=== PATIENT | male | born 1970 | race Hispanic/Latino ===

== ENCOUNTER 2018-01-28 21:41 | Emergency (ER) | payer OTHER ==
[2018-01-28 22:44] LABS: BASOPHILS % (AUTO) 0.3 % (0.0-5.0); EOSINOPHILS % (AUTO) 1.3 % (0.0-8.0); HEMATOCRIT 42.8 % (42-54); LYMPHOCYTES % (AUTO) 30.2 % (21.0-51.0); MEAN CORPUSCULAR HEMOGLOBIN 32.7 pg (27.0-33.0); MEAN CORPUSCULAR HGB CONC 36.1 g/dL (32.0-36.0); MEAN CORPUSCULAR VOLUME 90.6 fL (79-99); MONOCYTES % (AUTO) 8.7 % (3.0-13.0); NEUTROPHILS % (AUTO) 59.5 % (40.0-77.0); PLATELET COUNT (AUTO) 189 K/uL (130-400); RED BLOOD CELL COUNT(AUTO) 4.72 MIL/uL (4.50-6.20); RED CELL DISTRIBUTION WIDTH 12.7 % (11.0-15.5); WHITE BLOOD COUNT (AUTO) 6.8 K/uL (4.8-10.8)
[2018-01-28 22:52] LABS: CREATININE 0.8 mg/dL (0.5-1.5); POTASSIUM 3.7 mmol/L (3.5-5.1)
[2018-01-28 22:57] LABS: ALBUMIN 3.6 g/dL (3.5-5.0); BILIRUBIN,TOTAL 0.8 mg/dL (0.2-1.0); TOTAL PROTEIN, SERUM 6.8 g/dL (6.0-8.3)
[2018-01-28] MEDS ORDERED: SODIUM CHLORIDE 0.9% 1000ML 1,000 ML IV ONE (23:04)
[2018-01-28 23:22] LABS: CREATINE KINASE MB 1.4 ng/mL (0.5-3.6); CREATINE KINASE, TOTAL 99 U/L (21-232); MYOGLOBIN 32 ng/mL (10-92); TROPONIN I < 0.04 ng/mL (0.00-0.06)
== END 2018-01-29 00:07 | disposition home or self-care (01) ==
LOC: EDH 21:41
DX: E11.65 Type 2 diabetes mellitus with hyperglycemia (principal); E86.0 Dehydration; Z79.4 Long term (current) use of insulin; Z72.0 Tobacco use
CPT/HCPCS: 36415; 80053; 82550; 82553; 83874; 84484; 85025; 93005; 96360; 99285; J7030

== ENCOUNTER 2021-12-29 13:05 | Emergency (ER) | payer OTHER ==
[2021-12-29 13:07] VITALS: BP 147/89
[2021-12-29 13:35] LABS: HEMATOCRIT 45.8 % (42-54); MEAN CORPUSCULAR HEMOGLOBIN 32.3 pg (27.0-33.0); MEAN CORPUSCULAR HGB CONC 35.4 g/dL (32.0-36.0); MEAN CORPUSCULAR VOLUME 91.2 fL (79-99); PLATELET COUNT (AUTO) 196 K/uL (130-400); RED BLOOD CELL COUNT(AUTO) 5.02 MIL/uL (4.50-6.20); RED CELL DISTRIBUTION WIDTH 12.8 % (11.0-15.5); WHITE BLOOD COUNT (AUTO) 11.3 K/uL (4.8-10.8)
[2021-12-29 13:52] LABS: ALBUMIN 3.9 g/dL (3.5-5.0); BILIRUBIN,TOTAL 0.7 mg/dL (0.2-1.0); CREATININE 0.8 mg/dL (0.5-1.5); POTASSIUM 4.2 mmol/L (3.5-5.1); TOTAL PROTEIN, SERUM 6.9 g/dL (6.0-8.3)
[2021-12-29 13:59] LABS: B-TYPE NATRIURETIC PEPTIDE 45 pg/mL (0-100)
[2021-12-29 14:45] LABS: LYMPHOCYTES % (MANUAL) 13 % (22-44); MAN.DIFF COMMENT-IMPRESSION MANUAL DIFFERENTIAL; MONOCYTES % (MANUAL) 1 % (2-9); PLATELET MORPHOLOGY COMMENT ADEQUATE; SEGMENTED NEUTROPHILS % 86 % (40-70)
[2021-12-29] MEDS ORDERED: FAMO-136 PO (14:45)
[2021-12-29] MEDS ORDERED: PANT40TA PO (14:45)
[2021-12-29] MEDS ORDERED: FAMOTIDINE 20MG TAB PO ONE (15:00)
[2021-12-29] MEDS ORDERED: PANTOPRAZOLE 40 MG TAB DR PO SCH (15:00)
== END 2021-12-29 16:14 | disposition home or self-care (01) ==
LOC: EDH 13:05
DX: K29.70 Gastritis, unspecified, without bleeding (principal); Z79.899 Other long term (current) drug therapy
CPT/HCPCS: 36415; 71045; 80053; 83880; 84484; 85025; 87804; 93005

== ENCOUNTER 2022-05-11 23:14 | Inpatient (IN) | payer OTHER ==
[~2022-05-11] VITALS: Ht 172.7 cm; Wt 75.7 kg
[~2022-05-11 23:14] MED LIST: FAMO-136 PO; IBUP-1493 PO; PANT40TA PO
[2022-05-11] MEDS ORDERED: ONDANSETRON 4MG INJ ONE (23:56)
[2022-05-11] MEDS ORDERED: 0.9%NACL 1000ML 1,000 ML IV ONE (23:56)
[2022-05-11 23:59] LABS: BASOPHILS % (AUTO) 0.1 % (0.0-5.0); EOSINOPHILS % (AUTO) 0.2 % (0.0-8.0); HEMATOCRIT 44.6 % (42-54); LYMPHOCYTES % (AUTO) 14.2 % (21.0-51.0); MEAN CORPUSCULAR HEMOGLOBIN 32.6 pg (27.0-33.0); MEAN CORPUSCULAR HGB CONC 36.3 g/dL (32.0-36.0); MEAN CORPUSCULAR VOLUME 89.7 fL (79-99); MONOCYTES % (AUTO) 5.2 % (3.0-13.0); NEUTROPHILS % (AUTO) 79.8 % (40.0-77.0); PLATELET COUNT (AUTO) 233 K/uL (130-400); RED BLOOD CELL COUNT(AUTO) 4.97 MIL/uL (4.50-6.20); RED CELL DISTRIBUTION WIDTH 12.2 % (11.0-15.5); WHITE BLOOD COUNT (AUTO) 12.8 K/uL (4.8-10.8)
[2022-05-12] MEDS ORDERED: ONDANSETRON 4MG INJ IVP ONE
[2022-05-12 00:11] LABS: CREATININE 0.9 mg/dL (0.5-1.5); POTASSIUM 3.5 mmol/L (3.5-5.1)
[2022-05-12 00:14] LABS: APPEARANCE,URINE CLOUDY (CLEAR); BILIRUBIN,URINE NEGATIVE (NEGATIVE); COLOR,URINE YELLOW (YELLOW); GLUCOSE, URINE (UA) NEGATIVE (NEGATIVE); KETONES,URINE 20 mg/dL (NEGATIVE); LEUKOCYTE ESTERASE ,URINE NEGATIVE Leu/uL (NEGATIVE); NITRATE,URINE NEGATIVE (NEGATIVE); OCCULT BLOOD,URINE NEGATIVE (NEGATIVE); PROTEIN,URINE 20 mg/dL (NEGATIVE)
[2022-05-12 00:15] LABS: ALBUMIN 3.9 g/dL (3.5-5.0); MAGNESIUM 1.7 mg/dL (1.80-2.40); TOTAL PROTEIN, SERUM 7.2 g/dL (6.0-8.3)
[2022-05-12 00:19] LABS: BACTERIA,URINE RARE /HPF (None Seen); MUCUS,URINE FEW LPF (None Seen); SQUAMOUS EPITHELIAL CELL,UR RARE /HPF (0-2); YEAST,URINE BUDDING RARE /HPF (None Seen)
[2022-05-12] MEDS ORDERED: 0.9%NACL 1000ML 1,000 ML IV ONE ×3 (00:30→05:43)
[2022-05-12 00:34] LABS: AMPHET/METH SCREEN,URINE NEGATIVE (NEGATIVE); BARBITURATE SCREEN, URINE NEGATIVE (NEGATIVE); BENZODIAZEPINES SCREEN,URINE NEGATIVE (NEGATIVE); CANNABINOID SCREEN,URINE POSITIVE (NEGATIVE); COCAINE SCREEN,URINE POSITIVE (NEGATIVE); PHENCYCLIDINE SCREEN,URINE NEGATIVE (NEGATIVE)
[2022-05-12] MEDS ORDERED: IOHEXOL 350 MG/ML 100ML INFUS..BTL IV ONE (02:48)
[2022-05-12] MEDS ORDERED: HYDROCODONE/ACETAMINOPHEN 5/325 MG TAB PO PRN (05:00)
[2022-05-12] MEDS ORDERED: MAG/ALUM/SIMETH 30 ML UDCUP PO PRN (05:00)
[2022-05-12] MEDS ORDERED: MORPHINE 4 MG SYG IV PRN (05:00)
[2022-05-12] MEDS ORDERED: ONDANSETRON 4MG INJ IV PRN (05:00)
[2022-05-12] MEDS ORDERED: LACTULOSE 20 GM/30 ML UDCUP PO PRN (05:00)
[2022-05-12] MEDS ORDERED: MAGNESIUM 2GM PREMIX 50ML 50 ML IV SCH (05:00)
[2022-05-12] MEDS ORDERED: ACETAMINOPHEN 325 MG TAB PO PRN ×2 (05:00)
[2022-05-12] MEDS ORDERED: ALBUTEROL 0.083% 2.5 MG/3 ML INH IH PRN (05:00)
[2022-05-12] MEDS ORDERED: ONDANSETRON 4MG INJ ONE (05:40)
[2022-05-12] MEDS ORDERED: MORPHINE 4 MG SYG ONE (05:40)
[2022-05-12] MEDS ORDERED: ASPIRIN 81MG CHEW TAB ONE (05:47)
[2022-05-12] MEDS ORDERED: ENOXAPARIN SODIUM 40 MG/0.4 ML SYRINGE SQ ONE (05:48)
[2022-05-12 05:51] LABS: INR 1.05 (0.85-1.15); PROTHROMBIN TIME 11.4 SEC (9.6-11.6)
[2022-05-12 06:14] LABS: HEMOGLOBIN A1C 5.8 % (4.0-6.0); THYROID STIMULATING HORMONE 0.45 uIU/mL (0.36-3.74)
[2022-05-12] MEDS: 0.9%NACL 1000ML 1,000 ML IV SCH ×2 (06:18→15:00)
[2022-05-12] MEDS: CEFTRIAXONE 1G VIAL IV SCH (06:20)
[2022-05-12] MEDS: ENOXAPARIN SODIUM 40 MG/0.4 ML SYRINGE SQ SCH (06:45)
[2022-05-12] MEDS: INSULIN HUMULIN R 100 UNIT/ML 3ML SQ SCH ×4 (07:30→21:00)
[2022-05-12] MEDS ORDERED: ASPIRIN 325MG EC TAB PO SCH (09:00)
[2022-05-12] MEDS: FAMOTIDINE 20MG VIAL IV SCH ×2 (10:02→21:00)
[2022-05-12] MEDS ORDERED: ATORVASTATIN 40 MG TABLET PO SCH (21:00)
[2022-05-13] MEDS: 0.9%NACL 1000ML 1,000 ML IV SCH ×2 (01:00→04:18)
[2022-05-13 03:45] VITALS: BP 148/83
[2022-05-13] MEDS: CEFTRIAXONE 1G VIAL IV SCH (04:17)
[2022-05-13] MEDS: INSULIN HUMULIN R 100 UNIT/ML 3ML SQ SCH ×2 (06:12→11:30)
[2022-05-13 08:00] VITALS: BP 183/94
[2022-05-13 08:40] LABS: HEMATOCRIT 40.9 % (42-54); MEAN CORPUSCULAR HGB CONC 35.7 g/dL (32.0-36.0); MEAN CORPUSCULAR VOLUME 92.3 fL (79-99); RED BLOOD CELL COUNT(AUTO) 4.43 MIL/uL (4.50-6.20); RED CELL DISTRIBUTION WIDTH 12.4 % (11.0-15.5); WHITE BLOOD COUNT (AUTO) 8.6 K/uL (4.8-10.8)
[2022-05-13] MEDS: FAMOTIDINE 20MG VIAL IV SCH (08:40)
[2022-05-13] MEDS: ENOXAPARIN SODIUM 40 MG/0.4 ML SYRINGE SQ SCH (08:41)
[2022-05-13 08:48] LABS: CREATININE 0.7 mg/dL (0.5-1.5); POTASSIUM 3.5 mmol/L (3.5-5.1)
[2022-05-13] MEDS ORDERED: ASPIRIN 81 MG EC TAB PO SCH (09:00)
[2022-05-13] MEDS ORDERED: CLOPIDOGREL 75MG TAB PO SCH (09:00)
[2022-05-13] MEDS ORDERED: LISINOPRIL 10 MG TABLET PO SCH (09:30)
[2022-05-13] MEDS ORDERED: LISI10TA24 PO (11:44)
[2022-05-13] MEDS ORDERED: CLOP75TA14 PO (11:44)
[2022-05-13] MEDS ORDERED: ATOR40TA69 PO (11:44)
[2022-05-13] MEDS ORDERED: AEC81 PO (11:44)
[2022-05-13 12:00] VITALS: BP 126/69
[2022-05-13] MEDS ORDERED: KCL 20 MEQ ERTAB PO SCH (12:30)
[2022-05-13] MEDS ORDERED: KCL 20 MEQ ERTAB PO ONE (12:45)
== END 2022-05-13 22:58 | disposition home or self-care (01) | DRG 66 ==
LOC: EDH 23:14 → EDHIP 23:15 → 2AH 05-13 03:20
PROVIDERS: ADMIT Hospitalist; ATTEND Hospitalist
DX: I63.532 Cerebral infarction due to unspecified occlusion or stenosis of left posterior cerebral artery (principal); F14.10 Cocaine abuse, uncomplicated; Z20.822 Contact with and (suspected) exposure to COVID-19; F12.90 Cannabis use, unspecified, uncomplicated; F10.10 Alcohol abuse, uncomplicated; E83.42 Hypomagnesemia; E11.65 Type 2 diabetes mellitus with hyperglycemia; E78.5 Hyperlipidemia, unspecified; E86.0 Dehydration; F17.210 Nicotine dependence, cigarettes, uncomplicated; I10 Essential (primary) hypertension; Z79.02 Long term (current) use of antithrombotics/antiplatelets; Z79.899 Other long term (current) drug therapy; Z82.49 Family history of ischemic heart disease and other diseases of the circulatory system; Z91.199 Patient's noncompliance with other medical treatment and regimen due to unspecified reason
CPT/HCPCS: 36415; 70450; 70496; 70498; 70547; 70551; 80048; 80053; 80061; 80305; 81001; 82948; 83036; 83605; 83690; 83735; 84443; 84484; 85025; 85027; 85610; 85730; 87040; 87088; 87635; 87804; 92522; 92610; 93005; 93306; C9803; G0378; J0696; J1650; J2270; J2405; J3490; J7030; Q9967

== ENCOUNTER 2023-04-13 07:03 | Emergency (ER) | payer OTHER, SELFPAY ==
[~2023-04-13] VITALS: Ht 172.7 cm; Wt 95.3 kg
[~2023-04-13 07:03] MED LIST changes: +AEC81 PO; +AMLO-257 PO; +ATOR40TA69 PO; +CLOP-31 PO; -FAMO-136 PO; -IBUP-1493 PO; +LISI20TA24 PO; +METO-391 PO; +NICO-649 TD; -PANT40TA PO
[2023-04-13] MEDS ORDERED: ACETAMINOPHEN 500 MG TABLET PO STA (07:18)
[2023-04-13 07:39] LABS: RAPID GROUP A STREP negative (NEGATIVE)
[2023-04-13 07:49] LABS: SARS-CoV-2, RNA, NAAT POSITIVE SARS CoV-2 (NEGATIVE)
[2023-04-13 07:52] LABS: INFLUENZA TYPE A Negative For Type A (NEGATIVE); INFLUENZA TYPE B Negative For Type B (NEGATIVE)
[2023-04-13] MEDS ORDERED: MOLN200C PO (07:58)
[2023-04-13 08:18] VITALS: BP 133/80; PULSE 89; RESP 19; O2SAT 100
== END 2023-04-13 08:17 | disposition home or self-care (01) ==
LOC: EDH 07:03
DX: U07.1 COVID-19 (principal); I10 Essential (primary) hypertension; E11.9 Type 2 diabetes mellitus without complications; E78.00 Pure hypercholesterolemia, unspecified; F17.200 Nicotine dependence, unspecified, uncomplicated; Z79.82 Long term (current) use of aspirin; Z79.899 Other long term (current) drug therapy; Z86.73 Personal history of transient ischemic attack (TIA), and cerebral infarction without residual deficits; Z95.5 Presence of coronary angioplasty implant and graft; Z98.890 Other specified postprocedural states
CPT/HCPCS: 99283; 87635; 87880; 87804 ×2; C9803

== ENCOUNTER 2023-04-13 18:50 | Emergency (ER) | payer OTHER ==
[~2023-04-13] VITALS: Ht 172.7 cm; Wt 111.1 kg
[~2023-04-13 18:50] MED LIST changes: +MOLN200C PO
[2023-04-13] MEDS ORDERED: ACETAMINOPHEN 325 MG TAB PO ONE (20:00)
[2023-04-13 20:28] VITALS: TEMP 99.2
[2023-04-13] MEDS ORDERED: KETOROLAC 30MG VIAL (30MG/ML) IM ONE (21:00)
[2023-04-13] MEDS ORDERED: ALBUTEROL 0.083% 2.5 MG/3 ML INH IH ONE (21:00)
[2023-04-13] MEDS ORDERED: DEXAMETHASONE SOD PHOSPHATE 4 MG/ML 1ML VIAL IV ONE (21:00)
[2023-04-13] MEDS ORDERED: FAMOTIDINE 20MG VIAL IV ONE (21:00)
[2023-04-13] MEDS ORDERED: LACTATED RINGERS 1000ML 1,000 ML IV ONE (21:00)
[2023-04-13 21:01] VITALS: PULSE 61
[2023-04-13 21:24] VITALS: BP 126/69; PULSE 65; RESP 16; O2SAT 99
== END 2023-04-13 21:41 | disposition home or self-care (01) ==
LOC: EDH 18:50
DX: U07.1 COVID-19 (principal); I10 Essential (primary) hypertension; E11.9 Type 2 diabetes mellitus without complications; E78.00 Pure hypercholesterolemia, unspecified; F17.200 Nicotine dependence, unspecified, uncomplicated; Z79.82 Long term (current) use of aspirin; Z79.899 Other long term (current) drug therapy; Z86.73 Personal history of transient ischemic attack (TIA), and cerebral infarction without residual deficits; Z95.5 Presence of coronary angioplasty implant and graft; Z98.890 Other specified postprocedural states
CPT/HCPCS: 99284; 96374; 71045; 96361; 96375; 94640; 96372; J1100; J7120; J3490; J1885

== ENCOUNTER 2023-09-01 09:16 | Emergency (ER) | payer OTHER ==
[2023-09-01] MEDS ORDERED: ASPIRIN 325MG TAB PO ONE (09:30)
[2023-09-01 09:39] LABS: BASOPHILS # (AUTO) 0.03 K/uL (0.00-0.20); BASOPHILS % (AUTO) 0.3 % (0.0-5.0); EOSINOPHILS # (AUTO) 0.18 K/uL (0.00-0.70); EOSINOPHILS % (AUTO) 1.6 % (0.0-8.0); HEMATOCRIT 43.3 % (42-54); IMMATURE GRANULOCYTE ABSOLUTE 0.04 K/uL (0-1); LYMPHOCYTES # (AUTO) 3.4 K/uL (1.0-4.8); LYMPHOCYTES % (AUTO) 29.3 % (21.0-51.0); MEAN CORPUSCULAR HEMOGLOBIN 33.7 pg (27.0-33.0); MEAN CORPUSCULAR VOLUME 93.5 fL (79-99); MONOCYTES # (AUTO) 0.8 K/uL (0.1-1.0); MONOCYTES % (AUTO) 7.2 % (3.0-13.0); NEUTROPHILS % (AUTO) 61.3 % (40.0-77.0); PLATELET COUNT (AUTO) 189 K/uL (130-400); RED BLOOD CELL COUNT(AUTO) 4.63 MIL/uL (4.50-6.20); RED CELL DISTRIBUTION WIDTH 12.6 % (11.0-15.5); WHITE BLOOD COUNT (AUTO) 11.5 K/uL (4.8-10.8)
[2023-09-01 09:51] LABS: CREATININE 0.8 mg/dL (0.5-1.5); POTASSIUM 3.5 mmol/L (3.5-5.1)
[2023-09-01 09:53] LABS: ALBUMIN 3.7 g/dL (3.5-5.0); BILIRUBIN,TOTAL 1.1 mg/dL (0.2-1.0); MAGNESIUM 1.7 mg/dL (1.80-2.40)
[2023-09-01] MEDS ORDERED: MAGNESIUM OXIDE 400 MG TABLET PO ONE (10:30)
[2023-09-01 11:52] VITALS: BP 162/85; PULSE 53; RESP 17; O2SAT 99
== END 2023-09-01 11:50 | disposition home or self-care (01) ==
LOC: EDH 09:16
DX: I20.89 Other forms of angina pectoris (principal); F14.10 Cocaine abuse, uncomplicated; I10 Essential (primary) hypertension; E11.9 Type 2 diabetes mellitus without complications; E78.00 Pure hypercholesterolemia, unspecified; F17.200 Nicotine dependence, unspecified, uncomplicated; Z79.82 Long term (current) use of aspirin; Z79.899 Other long term (current) drug therapy; Z98.890 Other specified postprocedural states
CPT/HCPCS: 36415; 71045; 80053; 83735; 84484; 85025; 93005

== ENCOUNTER 2025-02-12 14:20 | Emergency (ER) | payer MEDICARE ==
[~2025-02-12] VITALS: Ht 172.7 cm; Wt 74.8 kg
[~2025-02-12 14:20] MED LIST changes: -AEC81 PO; +ASPI-1005 PO; +CHOL500050 PO; +CLOP75TA32 PO; +CYAN25006 SL; +DICL112S3 TP; +METF-444 PO; -METO-391 PO; -MOLN200C PO; -NICO-649 TD; +PANT40TA PO
[2025-02-12 15:00] VITALS: BP 101/60; PULSE 87; RESP 21; TEMP 98; O2SAT 99
[2025-02-12 15:08] LABS: RAPID GROUP A STREP negative (NEGATIVE)
[2025-02-12 15:15] LABS: INFLUENZA TYPE A Negative For Type A (NEGATIVE); INFLUENZA TYPE B Negative For Type B (NEGATIVE)
[2025-02-12 15:20] LABS: SARS-CoV-2, RNA, NAAT POSITIVE SARS CoV-2 (NEGATIVE)
--- NOTE | 2025-02-12 15:20 | NUR ---
COVID + ERMD MADE AWARE
--- NOTE | 2025-02-12 15:21 | ERN ---
ED Note History of Present Illness Stated Complaint: FLULIKE SYMPTOMS Chief Complaint: Flu Symptoms Time Seen by MD: 14:24 Dictation: PATIENT IS A 54-YEAR-OLD MALE COMING IN TODAY WITH FLU-LIKE SYMPTOMS TO INCLUDE BODY ACHES, FEVER CHILLS CLEAR RHINITIS AND MILD SORE THROAT. STATES HE HAS ALSO HAD A DRY COUGH NONPRODUCTIVE NO NAUSEA VOMITING NO DIARRHEA NO LOSS OF TASTE OR SMELL. STATES HE HAS BEEN TAKING [id number] MEDICATIONS FOR HIS SYMPTOMS, HAS NOT SEEN HIS DOCTOR HAS A AN APPOINTMENT TOMORROW. Allergies: Coded Allergies: No Known Allergies (Unverified Allergy, Unknown, 12/29/21) Home Meds Active Scripts Pantoprazole Sodium (Protonix) 40 Mg Tablet.dr, 40 MG PO DAILY, #60 TAB Prov:[employer] 03/20/24 Lisinopril (Lisinopril) 20 Mg Tablet, 20 MG PO DAILY, #60 TAB Prov:[employer] 03/20/24 Atorvastatin Calcium (LIPITOR) 40 Mg Tablet, 40 MG PO HS, #60 TAB Prov:[employer] 03/20/24 Aspirin (ASPIRIN 81MG CHEW TAB) 81 Mg Tab.chew, 81 MG PO DAILY, #60 TAB.CHEW Prov:[employer] 03/20/24 Amlodipine Besylate (Amlodipine Besylate) 5 Mg Tablet, 5 MG PO DAILY for 90 Days, #90 TAB 3 Refills Prov:MARCO CUNNINGHAM MD 01/17/23 Clopidogrel Bisulfate (Plavix) 75 Mg Tablet, 75 MG PO DAILY for 90 Days, #90 TAB 3 Refills Prov:MARCO CUNNINGHAM MD 01/16/23 Reported Medications Cholecalciferol (Vitamin D3) (Vitamin D3) 1,250 Mcg (43886 Unit) Capsule, 1250 MCG PO ONCE PRN for WEEKLY, CAP 03/19/24 Clopidogrel Bisulfate (Clopidogrel) 75 Mg Tablet, 75 MG PO DAILY, TAB 03/19/24 Cyanocobalamin (Vitamin B-12) (B-12) 2,500 Mcg Tab.subl, 2500 MCG SL DAILY, TAB.SL 03/19/24 Lisinopril (Lisinopril) 20 Mg Tablet, 20 MG PO DAILY, TAB 03/19/24 Metformin HCl (Metformin HCl) 500 Mg Tablet, 500 MG PO BID, TAB 03/19/24 Diclofenac Sodium (Diclofenac Sodium) 20 Mg/Gram Per Actuation (2 %) [employer], 112 GM TP TIDP 03/19/24 Past Medical History Past Medical History: High Cholesterol, Hypertension Surgical History: Other Surgical History Other: HEART STENT Family History: HTN Social History: Smokers, Drugs, ETOH, Lives with family RN Note Reviewed/Agreed w/PFSH: Yes Review of System Dictation CONSTITUTIONAL: NEGATIVE EXCEPT FOR HPI FEVER CHILLS HEAD/FACE: NEGATIVE EXCEPT FOR HPI EENT: NEGATIVE EXCEPT FOR HPI CLEAR RHINITIS WITH SORE THROAT RESPIRATORY: NEGATIVE EXCEPT FOR HPI DRY COUGH GASTROINTESTINAL/ABDOMINAL: NEGATIVE EXCEPT FOR HPI GENITOURINARY: NEGATIVE EXCEPT FOR HPI MUSCULOSKELETAL: NEGATIVE EXCEPT FOR HPI MALAISE INTEGUMENTARY: NEGATIVE EXCEPT FOR HPI NEUROLOGICAL/PSYCH: NEGATIVE EXCEPT FOR HPI HEMATOLOGIC/LYMPHATIC: NEGATIVE EXCEPT FOR HPI ALL SYSTEMS NEGATIVE, EXCEPT NOTED ABOVE. 13 POINT REVIEW OF SYSTEMS ASSESSED AND ALL NEGATIVE EXCEPT FOR ABOVE. Initial Vital Sign VS Vital Signs Date Time Temp Pulse Resp B/P (MAP) Pulse Ox O2 Delivery O2 Flow Rate FiO2 02/12/25 14:21 99.0 98 20 145/87 99 Room Air Physical Exam Dictation VITAL SIGNS REVIEWED GENERAL APPEARANCE: ALERT, ORIENTED X 3, NO ACUTE DISTRESS, WELL DEVELOPED, NOURISHED. HEAD AND FACE: NON-TRAUMATIC. EYES: PERRL, PINK CONJUNCTIVAS, EYELID NO TRAUMA, ANTERIOR CHAMBER WITH ARCUS SENILIS. EARS: PINNAS INTACT AND NO SIGNS OF TRAUMA OR ERYTHEMA EAR CANALS CLEAR AND NO DISCHARGE TM NO ERYTHEMA NOSE: CLEAR DISCHARGE, NO BLEEDING. OROPHARYNX: MOUTH NORMAL, TONGUE PINK, PHARYNX CLEAR,N MILD PHARYNGEAL ERYTHEMA, TONSILS NO EXUDATES, NO ABSCESSES NOTED, MUCOUS MEMBRANE MOIST UVULA MIDLINE, VOICE IS NECK: SUPPLE, NON-TENDER, NO THYROMEGALY, NO MASSES, NO JVD, NO BRUITS BREAST:DEFERRED CHEST:NO TENDERNESS, NO CREPITUS, NO PARADOXICAL MOVEMENT, NO RETRACTIONS LUNGS:CLEAR, WELL-VENTILATED, SYMMETRIC, NO RALES, NO WHEEZING, NO RHONCHI, NO STRIDOR, GOOD BREATH SOUNDS BILATERALLY HEART: REGULAR RATE, REGULAR RHYTHM, NO MURMUR, NO GALLOPS VASCULAR: NO PERIPHERAL EDEMA, ABDOMEN: SOFT, POSITIVE BOWEL SOUNDS, NONDISTENDED, NO GUARDING, NONTENDER, NO REBOUND, NO MASSES NO HEPATOMEGALY, NO SPLENOMEGALY, NO BORGES'S SIGN, NO HERNIAS. RECTAL: DEFERRED GENITAL: DEFERRED NEUROLOGICAL: NORMAL SPEECH, MOTOR FUNCTION INTACT, SENSORY FUNCTION INTACT MUSCULOSKELETAL: NECK NONTENDER, FULL RANGE OF MOTION, BACK NONTENDER, FULL RANGE OF MOTION, EXTREMITIES: NONTENDER, FULL RANGE OF MOTION SKIN: COLOR PINK, DRY, NO TURGOR, NO RASH, NO LACERATIONS, NO ABRASIONS, NO CONTUSIONS. LYMPHATIC: DEFERRED Results (Laboratory/Radiology) Laboratory/Radiology Laboratory Tests Test 02/12/25 14:25 Influenza Type A Antigen Negative For Type A Influenza Type B Antigen Negative For Type B SARS-CoV-2, RNA, NAAT POSITIVE SARS CoV-2 Group A Streptococcus Rapid negative (NEGATIVE) ED Course ED Course Orders Procedure Category Date Status Time Covid Rna Naat LAB 02/12/25 Complete 14:27 Rapid (Group A Strep) LAB 02/12/25 Complete 14:27 Influenza Type A & B, LAB 02/12/25 Complete Rapid 14:27 Ibuprofen 800 Mg Tab PHA 02/12/25 In Process (Motrin) 15:30 Dexamethasone 4mg/Ml PHA 02/12/25 In Process 1ml Vial (Dexametha 15:30 Current Medications Medications (Trade) Dose Ordered Sig/Christina Route PRN Reason Start Time Stop Time Status Last Admin Dose Admin Dexamethasone Sodium Phosphate (dexaMETHasone 4MG/ML 1ML VIAL) 8 mg ONCE ONCE IM 02/12/25 15:30 02/12/25 15:31 Ibuprofen (moTRIN) 800 mg ONCE ONCE PO 02/12/25 15:30 02/12/25 15:31 Vital Signs Date Time Temp Pulse Resp B/P (MAP) Pulse Ox O2 Delivery O2 Flow Rate FiO2 02/12/25 14:21 99.0 98 20 145/87 99 Room Air Medical Decision Making MDM MEDICAL DECISION-MAKING BASED ON SWABS FOR CLIP FLU COVID AND STREP. PATIENT IS SARS COVID POSITIVE DISCHARGED HOME WITH SUPPORTIVE MEDICATIONS TOLD KEEP HIS APPOINTMENT WITH HIS PRIMARY CARE DOCTOR TOMORROW. DX & DISP Disposition: Discharge Departure Impression: Primary Impression: COVID-19 virus infection Additional Impressions: Fever, Cough Condition: Stable Scripts Benzonatate (Tessalon Perles) 100 Mg Cap 200 MG PO TID for cough, #60 CAP 0 Refills Prov: RHEINER,PENNIE P BOTTOM BRUSHER 02/12/25 Nirmatrelvir/Ritonavir (Paxlovid 300/150-100Mg(Severe)) 150 Mg (6)-100 Mg (5) Tab.ds.pk 1 EACH PO BID for 5 Days, #30 TAB Prov: PENNIE BATES BOTTOM BRUSHER 02/12/25 Additional Instructions: FOLLOW-UP WITH PRIMARY CARE PROVIDER IN 1 TO 2 DAYS. TAKE MEDICATIONS DIRECTED HERE IN THE EMERGENCY ROOM. OKAY TO CONTINUE HOME MEDICATIONS UNLESS OTHERWISE DISCUSSED DURING YOUR VISIT IN THE EMERGENCY ROOM TODAY. RETURN TO YOUR NEAREST EMERGENCY ROOM IF SYMPTOMS WORSEN OR IF THERE IS NO IMPROVEMENT. CALL 911 IF YOU NEED IMMEDIATE ASSISTANCE. TAKE TYLENOL OR MOTRIN [id number] NEEDED AND IF NO CONTRAINDICATIONS ARE PRESENT. INCREASE ORAL HYDRATION. A WOUND CULTURE OR URINE CULTURE WAS ORDERED HERE IN THE EMERGENCY ROOM DEPARTMENT PLEASE FOLLOW-UP WITH PRIMARY CARE PROVIDER AND ADVISE THEM TO GET REPEAT PORTS FROM OUR FACILITY. IF YOU HAD ANY ARAMIS WRAP/SPLINTS THAT WERE APPLIED HERE, PLEASE DO NOT REMOVE THEM UNTIL YOU SEE YOUR PRIMARY CARE OR SPECIALTY. TAKE PAXLOVID DIRECTED UNTIL GONE. INCREASE YOUR WATER INTAKE. TAKE TYLENOL OR MOTRIN [id number] NEEDED FOR FEVER PAIN. TAKE TESSALON PERLES NEEDED FOR COUGH. FOLLOW UP WITH YOUR PRIMARY CARE DOCTOR IN THE NEXT 1-2 DAYS. Referrals: SELF,REFERRAL (PCP) Time of Disposition: 15:31 I have reviewed the case, and I agree with, Diagnosis and Plan PENNIE BATES NP Feb 12, 2025 15:21
[2025-02-12] MEDS ORDERED: BENZ-39 PO (15:33)
[2025-02-12] MEDS ORDERED: NIRM1TAB11 PO (15:33)
== END 2025-02-12 16:05 | disposition home or self-care (01) ==
LOC: EDH 14:20
DX: U07.1 COVID-19 (principal); R50.9 Fever, unspecified; R05.9 Cough, unspecified; E78.00 Pure hypercholesterolemia, unspecified; I10 Essential (primary) hypertension; F17.200 Nicotine dependence, unspecified, uncomplicated; Z79.02 Long term (current) use of antithrombotics/antiplatelets; Z79.82 Long term (current) use of aspirin; Z79.84 Long term (current) use of oral hypoglycemic drugs; Z79.899 Other long term (current) drug therapy; Z95.5 Presence of coronary angioplasty implant and graft
CPT/HCPCS: 99283; 87635; 87880; 87804 ×2; 96372; J1100